=== PATIENT | female | born 1960 | race Caucasian/White ===

== ENCOUNTER 2019-05-20 06:50 | Day surgery (SDC) | payer BC ==
[~2019-05-20] VITALS: Ht 162.6 cm; Wt 64.0 kg
--- NOTE | ~2019-05-20 | OR ---
[facility] [address] [place], [place] [address] Draft DATE OF OPERATION: 05/20/2019 SURGEON: Dandre Sanders MD PREOPERATIVE DIAGNOSIS: Medial meniscus tear, right knee. POSTOPERATIVE DIAGNOSIS: Medial meniscus tear, right knee. PROCEDURE PERFORMED: Right knee arthroscopy with partial medial meniscectomy. ANESTHESIA: General. [employer] SUPERVISOR: None. TOURNIQUET TIME: Zero. ESTIMATED BLOOD LOSS: Minimal. BRIEF HISTORY: Rah is a 59-year-old female with progressive worsening of pain and occasional locking in her knee. MRIs consistent with a fairly substantial posteromedial meniscus tear. Risks and benefits of operative treatment were discussed with her and she elected to proceed. DESCRIPTION OF PROCEDURE: Once consent was obtained, she was taken to the operating room and after adequate anesthesia, she was placed on the operating room table. The left leg was flexed, abducted, and externally rotated in a well-padded leg henson. The right leg was placed in a well-padded proximal leg henson and the portal sites were pre-injected using 0.25% Marcaine with epinephrine under an alcohol prep. The leg was then prepped and draped in the standard sterile fashion, and the standard inferolateral and superolateral portals were made, and the scope was introduced into the knee. 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 Otherwise, no significant chondral damage was noted. ACL and PCL were intact. The lateral meniscus was intact. Medial meniscus showed a degenerative tear posteriorly, extending from the posterior attachment to the posteromedial corner. There were horizontal and radial components. The patella was noted to track well. There was no significant chondromalacia. Standard inferomedial portal was made and the probe was used to complete the diagnostic arthroscopy. The straight biters were then used to trim the meniscus tear posteromedially back to a stable rim. Then, this shaver was used to evacuate all debris and smooth the edges and feather the anterior portion. Once this was completed, the scope was withdrawn. Portals were closed with 3-0 nylon. The knee was injected with 60 mg of Toradol at the end of the case. The wounds were dressed with Adaptic, ABD, and Cheo wrap. She tolerated the procedure well. All sponge, needle, and instrument counts were correct. Dandre Sanders MD BA/EMMANUEL /[id number] Copies: ~ PATIENT NAME: RAH CANDELARIO OPERATIVE REPORT DATE OF : 62 REPORT #: [id number] PHYSICIAN: DANDRE SANDERS MD PCP: KAREN TORRES REPORT IS CONFIDENTIAL AND NOT TO BE RELEASED WITHOUT AUTHORIZATION
[~2019-05-20 06:50] MED LIST: ASPIR-LOW81 MG PO; KRILL OIL 1,001 EAC1 PO; NASAL DECONGEST10 MG PO; VITAMIN B COMP1 EACH PO
[2019-05-20] MEDS ORDERED: TRAMADOL HCL50 MG PO (09:29)
[2019-05-20] MEDS ORDERED: SENNA LAX8.6 MG PO (09:29)
[2019-05-20] MEDS ORDERED: DICLOFENAC SODI75 MG PO (09:29)
--- NOTE | 2019-05-20 09:37 | NUR ---
05/20/19 0937 James Akhtar 0919) PATIENT COMES IN WITH ORAL AIRWAY, RR SLOW AT 8 PER/MIN. DRESSING CLEEN AND DRY. 0935) OPENED EYES TO VERBAL COMAND THEN WENT BACK TO SLEEP WITH ORAL AIRWAY IN.
--- NOTE | 2019-05-20 11:35 | NUR ---
1115) PATIENT WALKED TO RESTROOM WITHOUT ANY TROUBLE OR INCREASED PAIN. TOLERATED PO WEEL AND VOIDED.
== END 2019-05-20 11:20 | disposition home or self-care (01) ==
LOC: DS 06:50 → OPS 06:50 → DS 09:00 → OPS 11:20
PROVIDERS: Specialist
PROC: 0SBC4ZZ Excision of Right Knee Joint, Percutaneous Endoscopic Approach (ICD-10-PCS; principal; 2019-05-20 09:00)
DX: S83.241A Other tear of medial meniscus, current injury, right knee, initial encounter (principal); M94.261 Chondromalacia, right knee; F41.9 Anxiety disorder, unspecified; Z88.5 Allergy status to narcotic agent; Z79.899 Other long term (current) drug therapy; Z79.82 Long term (current) use of aspirin; Z87.891 Personal history of nicotine dependence
CPT/HCPCS: 01400; J0131; J0690; J1100; J1885; J2370; J2704; J3010; J7120